=== PATIENT | female | born 1960 | race Caucasian/White ===

== ENCOUNTER 2020-07-20 13:59 | Inpatient (IN) | payer OTHER ==
[~2020-07-20] VITALS: Ht 162.6 cm; Wt 90.7 kg
--- NOTE | ~2020-07-20 | OP ---
[address] [address] OPERATIVE REPORT Name: CHEPE HERRERA Room: [address] IN M.R.#: [id number] Admission: 07/20/20 Attend Phys: Silvio Kahn Discharge: Date of : 56 Report #: [id number] THIS REPORT FOR: cc: FAM - No family physician/PCP FAM - No family physician/PCP ~ [facility],Medical Records Staff For Operative report details, please see the Post Operative note dated 07/24/2020. By: 1345Medical Records Staff MELINDA /GERRY
[2020-07-20 14:08] VITALS: BP 150/79
[2020-07-20] MEDS ORDERED: XANAX 0.25 MG0.25 MG PO (14:13)
[2020-07-20] MEDS ORDERED: CELEXA 10 MG TA10 M1 PO (14:13)
[2020-07-20] MEDS ORDERED: ACYCLOVIR 200200 MG PO (14:14)
[2020-07-20 14:51] LABS: HEMATOCRIT 43.4 % (37.0-47.0); HEMOGLOBIN 14.1 gm/dL (12.0-15.0); MCH 27.7 pg (26.0-34.0); MCHC 32.5 g/dL (28.0-37.0); MCV 85.4 fL (80.0-100.0); MPV 8.1 fl. (7.2-11.1); NUCLEATED RBCS 0 /100WBC; PLATELET COUNT* 297 thou/uL (150-400); RBC 5.08 mil/uL (4.20-5.00); RDW-CV 14.6 % (10.5-14.5); WBC 12.8 thou/uL (4.0-11.0)
[2020-07-20 14:58] LABS: CALCIUM 8.8 mg/dL (8.5-10.1); CREATININE 0.7 mg/dL (0.6-1.3); POTASSIUM 3.9 mmol/L (3.5-5.1)
[2020-07-20 15:03] LABS: ALBUMIN 3.8 g/dL (3.4-5.0); TOTAL BILIRUBIN 0.6 mg/dL (<0.1-1.0); TOTAL PROTEIN 7.1 g/dL (6.4-8.2)
[2020-07-20 15:30] LABS: ABSOLUTE LYMPHOCYTES 0.8 thou/uL (0.8-5.3); ABSOLUTE MONOCYTES 0.4 thou/uL (0.0-1.2); ABSOLUTE NEUTROPHILS 11.6 thou/uL (1.6-8.1); PLATELET ESTIMATE ADEQUATE
[2020-07-20 15:31] LABS: LARGE PLATELETS OCCASIONAL
[2020-07-20 16:24] VITALS: BP 170/88
--- NOTE | 2020-07-20 16:39 | EKG ---
[place] [address] ELECTROCARDIOGRAM REPORT Name: CHEPE HERRERA Room: [place] [address] ADM IN [facility].#: [id number] Admission: 07/20/20 Attend Phys: Jarad Shields Discharge: Date of : 56 Date of Service: 07/20/20 1410 Report #: [id number] THIS REPORT FOR: //name// [facility] ED Test Date: 2020-07-20 Test Time: 14:10:46 Pat Name: CHEPE HERRERA Department: Room: [facility] Gender: F Vessel Builder: MALI : 1960 Requested By: Donavan Becker Order Number: [id number] MD: Mohan Abdalla Measurements Intervals [place] Rate: 57 P: 57 [place]: 166 QRS: 23 QRSD: 99 T: 32 QT: 468 QTc: 456 Interpretive Statements Sinus rhythm No previous ECG available for comparison Electronically Signed On 07-20-2020 16:39:01 [employer]FA[employer]ILDINGS SUPERVISOR by Mohan Abdalla [email or web address] <ELECTRONICALLY SIGNED> By: Mohan Abdalla MD, [facility] 07/20/20 1639 1410 141 Mohan Abdalla MD, [facility] /EPI
[2020-07-20 16:54] VITALS: BP 157/82
[2020-07-20 20:00] VITALS: BP 165/90
[2020-07-21 07:45] VITALS: BP 118/72
[2020-07-21 16:25] VITALS: BP 102/65
[2020-07-21 20:00] VITALS: BP 113/64
[2020-07-22 05:25] LABS: ABSOLUTE LYMPHOCYTES 0.9 thou/uL (0.8-5.3); BASOPHILS 0.2 %; EOSINOPHILS 0.1 %; HEMATOCRIT 37.6 % (37.0-47.0); LYMPHOCYTES 6.5 %; MCH 27.1 pg (26.0-34.0); MCHC 31.7 g/dL (28.0-37.0); MCV 85.4 fL (80.0-100.0); MONOCYTES 7.4 %; MPV 8.4 fl. (7.2-11.1); NUCLEATED RBCS 0 /100WBC; PLATELET COUNT* 250 thou/uL (150-400); POLYS 85.8 %; RDW-CV 15.2 % (10.5-14.5)
[2020-07-22 05:39] LABS: ALBUMIN 2.9 g/dL (3.4-5.0); CREATININE 0.6 mg/dL (0.6-1.3); POTASSIUM 3.4 mmol/L (3.5-5.1); TOTAL BILIRUBIN 0.7 mg/dL (<0.1-1.0); TOTAL PROTEIN 6.2 g/dL (6.4-8.2)
[2020-07-22 05:42] LABS: CALCIUM 6.7 mg/dL (8.5-10.1)
[2020-07-22 06:01] LABS: HEMOGLOBIN 11.9 gm/dL (12.0-15.0)
[2020-07-22 06:17] LABS: URINE BILIRUBIN NEGATIVE (Negative); URINE BLOOD NEGATIVE (Negative); URINE CLARITY CLEAR; URINE COLOR YELLOW; URINE GLUCOSE-RANDOM NEGATIVE (Negative); URINE LEUKOCYTES-REFLEX NEGATIVE (Negative); URINE NITRITE-REFLEX NEGATIVE (Negative); URINE PROTEIN TRACE (Negative); URINE SPECIFIC GRAVITY >= 1.030 (1.005-1.030); URINE UROBILINOGEN 0.2 E.U./dl (0.2-1.0)
[2020-07-22 06:21] LABS: URINE KETONES 3+ (Negative)
[2020-07-22 08:05] VITALS: BP 108/60
[2020-07-22 16:31] VITALS: BP 109/67
[2020-07-22 20:00] VITALS: BP 139/75
[2020-07-23 04:00] VITALS: BP 148/72
[2020-07-23 05:25] LABS: ALBUMIN 2.6 g/dL (3.4-5.0); CALCIUM 7.2 mg/dL (8.5-10.1); CREATININE 0.6 mg/dL (0.6-1.3); POTASSIUM 3.1 mmol/L (3.5-5.1); TOTAL BILIRUBIN 0.7 mg/dL (<0.1-1.0)
[2020-07-23 05:28] LABS: HEMATOCRIT 34.1 % (37.0-47.0); HEMOGLOBIN 11.1 gm/dL (12.0-15.0); MCH 27.5 pg (26.0-34.0); MCHC 32.4 g/dL (28.0-37.0); MCV 84.8 fL (80.0-100.0); MPV 8.5 fl. (7.2-11.1); RBC 4.02 mil/uL (4.20-5.00); RDW-CV 14.8 % (10.5-14.5)
[2020-07-23 08:25] VITALS: BP 132/74
[2020-07-23 09:34] LABS: MAGNESIUM 2.1 mg/dL (1.8-2.4); PHOSPHORUS* 0.5 mg/dL (2.5-4.9)
[2020-07-23 16:00] VITALS: BP 126/64
[2020-07-23 20:00] VITALS: BP 140/89
[2020-07-24 04:38] LABS: ABSOLUTE EOSINOPHILS 0.1 thou/uL (0.0-0.7); ABSOLUTE LYMPHOCYTES 1.2 thou/uL (0.8-5.3); ABSOLUTE MONOCYTES 1.1 thou/uL (0.0-1.2); ABSOLUTE NEUTROPHILS 11.6 thou/uL (1.6-8.1); BASOPHILS 0.3 %; EOSINOPHILS 0.4 %; HEMATOCRIT 32.9 % (37.0-47.0); HEMOGLOBIN 10.8 gm/dL (12.0-15.0); LYMPHOCYTES 8.3 %; MCHC 32.8 g/dL (28.0-37.0); MCV 85.3 fL (80.0-100.0); MONOCYTES 8.1 %; MPV 8.4 fl. (7.2-11.1); NUCLEATED RBCS 0 /100WBC; PLATELET COUNT* 242 thou/uL (150-400); POLYS 82.9 %; RBC 3.86 mil/uL (4.20-5.00); RDW-CV 14.7 % (10.5-14.5)
[2020-07-24 05:22] LABS: ALBUMIN 2.4 g/dL (3.4-5.0); CALCIUM 6.8 mg/dL (8.5-10.1); CREATININE 0.5 mg/dL (0.6-1.3); POTASSIUM 3.7 mmol/L (3.5-5.1); TOTAL BILIRUBIN 0.6 mg/dL (<0.1-1.0); TOTAL PROTEIN 6.2 g/dL (6.4-8.2)
[2020-07-24 08:20] VITALS: BP 133/69
[2020-07-25] VITALS: BP 125/69
[2020-07-25 02:07] VITALS: BP 128/78
[2020-07-25 04:00] VITALS: BP 134/88
[2020-07-25 05:50] LABS: HEMATOCRIT 32.1 % (37.0-47.0); HEMOGLOBIN 10.4 gm/dL (12.0-15.0); MCH 27.7 pg (26.0-34.0); MCHC 32.4 g/dL (28.0-37.0); MCV 85.4 fL (80.0-100.0); MPV 8.5 fl. (7.2-11.1); NUCLEATED RBCS 0 /100WBC; PLATELET COUNT* 279 thou/uL (150-400); RBC 3.76 mil/uL (4.20-5.00); WBC 13.6 thou/uL (4.0-11.0)
[2020-07-25 06:31] LABS: ABSOLUTE LYMPHOCYTES 0.5 thou/uL (0.8-5.3); ABSOLUTE MONOCYTES 0.3 thou/uL (0.0-1.2); ABSOLUTE NEUTROPHILS 12.8 thou/uL (1.6-8.1); PLATELET ESTIMATE ADEQUATE
[2020-07-25 06:32] LABS: ALBUMIN 2.4 g/dL (3.4-5.0); ANISOCYTOSIS 1+; CALCIUM 7.2 mg/dL (8.5-10.1); CREATININE 0.5 mg/dL (0.6-1.3); POIKILOCYTOSIS 1+; POTASSIUM 3.7 mmol/L (3.5-5.1); TOTAL BILIRUBIN 0.4 mg/dL (<0.1-1.0); TOTAL PROTEIN 6.4 g/dL (6.4-8.2)
[2020-07-25 07:09] LABS: IgG 957 mg/dL (586-1602)
[2020-07-25 08:00] VITALS: BP 137/73
[2020-07-25 15:50] VITALS: BP 121/52
[2020-07-25 20:00] VITALS: BP 124/54
[2020-07-26 08:00] VITALS: BP 130/66
[2020-07-26] MEDS ORDERED: OXYCODONE HCL 55 MG PO (09:41)
[2020-07-26 12:26] VITALS: BP 124/54
[2020-07-26 13:35] VITALS: BP 124/54
--- NOTE | 2020-07-26 16:06 | PATH ---
[facility] [address] [place] [address] PATHOLOGY RPT PROCEDURE Name: SHIRLEYDEVI GANTH Room: [address] IN M.R.#: [id number] Admission: 07/20/20 Date of : 56 Discharge: 07/26/20 Report #: [id number] Path Case #: [id number] [facility] Accession Number: [id number] . 01 Material submitted: . gallbladder - GALLBLADDER WITH CONTENTS . 01 Clinical history: . ACUTE CHOLECYSTITIS . 02 Diagnosis: Gallbladder with contents: - Chronic and acute cholecystitis and cholelithiasis. (MERLY:[place]; 07/26/2020) MBR 07/26/2020 1308 Local . 02 Electronically signed: . Bronson Garg MD, Pathologist NPI- [id number] . 01 Gross description: . The specimen is received in formalin, labeled "Chepe Teegarden, gallbladder". Received is an intact gallbladder measuring 8.7 x 2.9 x 2.0 cm in greatest dimensions displaying a pink-mcdermott serosal surface. Opening the specimen reveals a velvety, bile-stained mucosa with a gallbladder wall thickness of 0.1 cm. A single bright yellow, nodular calculus is present, and no masses or lesions are noted grossly. Assessment Expert sections, to include the proximal margin, are submitted in cassette A1. (CAA; 07/25/2020) QAC/QAC 07/25/2020 1547 Local . 02 Pathologist provided ICD-10: K80.12 . 02 CPT . 781636 Specimen Comment: A courtesy copy of this report has been sent to [phone] Specimen Comment: Report sent to Performed at: [facility] [address] [facility] [address], [place] [id number] MD Angel Conde MD Phone: [phone] Performed at: [address] [address] [address], [place] [id number] MD Bronson Garg MD Phone: [phone]
== END 2020-07-26 14:00 | disposition home or self-care (01) | DRG 417 ==
LOC: M.ERS 13:59 → M.TBA-ER 15:39 → M.3W 15:39
PROVIDERS: Emergency Medicine Emergency Medical Services; Nurse Practitioner Adult Health; Surgery; ADMIT Internal Medicine; ATTEND Internal Medicine
PROC: 0FT44ZZ Resection of Gallbladder, Percutaneous Endoscopic Approach (ICD-10-PCS; principal; 2020-07-24)
PROC: 3E0T3BZ Introduction of Anesthetic Agent into Peripheral Nerves and Plexi, Percutaneous Approach (ICD-10-PCS; principal; 2020-07-24)
DX: K80.00 Calculus of gallbladder with acute cholecystitis without obstruction (principal); K85.10 Biliary acute pancreatitis without necrosis or infection; R65.10 Systemic inflammatory response syndrome (SIRS) of non-infectious origin without acute organ dysfunction; F41.9 Anxiety disorder, unspecified; M54.9 Dorsalgia, unspecified; J44.9 Chronic obstructive pulmonary disease, unspecified; F32.9 Major depressive disorder, single episode, unspecified; Z20.822 Contact with and (suspected) exposure to COVID-19; Z90.710 Acquired absence of both cervix and uterus; Z79.899 Other long term (current) drug therapy; Z88.0 Allergy status to penicillin; Z87.891 Personal history of nicotine dependence